=== PATIENT | female | born 1950 | race Asian ===

== ENCOUNTER 2021-08-26 10:38 | Outpatient (CLI) | payer MEDICARE, BC | END 2021-08-26 10:39 | disposition home or self-care (01) | LOC: CSHMAMMO 10:38 | PROVIDERS: ATTEND Family Medicine | DX: Z12.31 Encounter for screening mammogram for malignant neoplasm of breast (principal); Z91.89 Other specified personal risk factors, not elsewhere classified; Z80.3 Family history of malignant neoplasm of breast | CPT/HCPCS: 77063; 77067 ==

== ENCOUNTER 2022-08-30 11:09 | Outpatient (CLI) | payer BC, MEDICARE | END 2022-08-30 11:10 | disposition home or self-care (01) | LOC: CSHMAMMO 11:09 | PROVIDERS: ATTEND Family Medicine | DX: Z12.31 Encounter for screening mammogram for malignant neoplasm of breast (principal); Z80.3 Family history of malignant neoplasm of breast; Z91.89 Other specified personal risk factors, not elsewhere classified | CPT/HCPCS: 77063; 77067 ==

== ENCOUNTER 2023-10-20 08:32 | Outpatient (CLI) | payer BC, MEDICARE ==
[2023-10-20] MEDS ORDERED: Iopamidol 300 61% 100 ML VIAL FS ONE (13:34)
== END 2023-10-20 08:33 | disposition home or self-care (01) ==
LOC: CSHRAD 08:32
PROVIDERS: ATTEND Internal Medicine Cardiovascular Disease
DX: R22.2 Localized swelling, mass and lump, trunk (principal)
CPT/HCPCS: 71275; 82565; Q9967

== ENCOUNTER 2023-12-10 11:47 | Outpatient (CLI) | payer BC, MEDICARE | END 2023-12-10 11:48 | disposition home or self-care (01) | LOC: CSHRAD 11:47 | PROVIDERS: ATTEND Family Medicine | DX: U07.1 COVID-19 (principal) | CPT/HCPCS: 71046 ==